=== PATIENT | female | born 2000 | race Caucasian/White ===

== ENCOUNTER 2024-01-20 12:27 | Emergency (ER) | payer OTHER ==
[~2024-01-20] VITALS: Ht 160 cm; Wt 96.3 kg
[2024-01-20] MEDS ORDERED: IBUPROFEN 600 MG TAB PO ONE (13:30)
[2024-01-20] MEDS ORDERED: ACETAMINOPHEN 500 MG TAB PO ONE (13:30)
[2024-01-20 14:32] VITALS: BP 120/87
== END 2024-01-20 14:32 | disposition home or self-care (01) ==
LOC: ED 12:27
DX: T51.0X Toxic effect of ethanol (principal); H10.213 Acute toxic conjunctivitis, bilateral; S70.01XA Contusion of right hip, initial encounter; Y04.0XXA Assault by unarmed brawl or fight, initial encounter
CPT/HCPCS: 99283; A9270